=== PATIENT | female | born 1945 | race Caucasian/White ===

== ENCOUNTER 2017-08-17 20:03 | Emergency (ER) | payer OTHER ==
[~2017-08-17] VITALS: Ht 154.9 cm; Wt 66.9 kg
[2017-08-17 20:07] VITALS: BP 170/84; PULSE 96; RESP 16; TEMP 98.5; O2SAT 97
--- NOTE | 2017-08-17 20:50 | PD ---
HPI Chief Complaint: Headache Time Seen by Provider: 20:20 Travel History International Travel<30 days: No Contact w/Intl Traveler<30days: No Traveled to known affect area: No History of Present Illness HPI The patient was seen and examined in the presence of the nurse. This patient complains of a tender lump on the left side of her head. She has had some intermittent low-grade headaches lately. Nothing severe or sustained. No thunderclap onset. No head injury or fever. She went to a walk-in center and they were concerned about temporal arteritis and sent here for sed rate. Symptom severity is mild. No alleviating factors. No exacerbating factors. Duration is 3 days PFSH Past Medical History ?: Not Social History Alcohol Use: No Tobacco Use: No Substance Use: No Allergies-Medications (Allergen,Severity, Reaction): Coded Allergies: iodine (Verified Allergy, Severe, Cramping, 08/17/17) Reported Meds & Prescriptions Reported Meds & Active Scripts Active No Active Prescriptions or Reported Medications Review of Systems General / Constitutional: No: Fever Eyes: No: Visual changes HENT: Positive: Headaches Cardiovascular: No: Chest Pain or Discomfort Respiratory: No: Shortness of Breath Gastrointestinal: No: Abdominal Pain Genitourinary: No: Dysuria Musculoskeletal: No: Pain Skin: No Rash Neurologic: Positive: Headache, No: Weakness Psychiatric: No: Depression Endocrine: No: Polydipsia Hematologic/Lymphatic: No: Easy Bruising Physical Exam Narrative GENERAL: Well-nourished, well-developed patient in no apparent distress. SKIN: Focused skin assessment reveals no rash and nodules. Skin is Warm and dry. HEAD: Atraumatic. Normocephalic. Patient has a tiny little mildly tender area on the left mandaeism. It is not a tender vascular structure. It is barely palpable. EYES: Pupils equal and round. No scleral icterus. No injection or drainage. ENT: No nasal bleeding or discharge. Mucous membranes pink and moist. NECK: Trachea midline. No JVD. CARDIOVASCULAR: Regular rate and rhythm. No murmur appreciated. RESPIRATORY: No accessory muscle use. Clear to auscultation. Breath sounds equal bilaterally. GASTROINTESTINAL: Abdomen soft, non-tender, nondistended. Hepatic and splenic margins not palpable. MUSCULOSKELETAL: No obvious deformities. No clubbing. No cyanosis. No edema. NEUROLOGICAL: Awake and alert. No obvious cranial nerve deficits. Motor grossly within normal limits. Normal speech. PSYCHIATRIC: Appropriate mood and affect; insight and judgment normal. Data Data Last Documented VS Vital Signs Date Time Temp Pulse Resp B/P (MAP) Pulse Ox O2 Delivery O2 Flow Rate FiO2 08/17/17 20:20 Room Air 08/17/17 20:07 98.5 96 16 170/84 (112) 97 Orders Orders Westergren Sedimentation Rate (08/17/17 20:29) Labs Laboratory Tests Test 08/17/17 21:11 Erythrocyte Sedimentation Rate 9 mm/hr MDM Medical Decision Making Medical Screen Exam Complete: Yes Emergency Medical Condition: Yes Medical Record Reviewed: Yes Differential Diagnosis Tender nodule, neuropathic pain, shingles, temporal arteritis Narrative Course I have reviewed the patient's electronic medical record. My clinical suspicion of temporal arteritis is very low. However, in the sake of thoroughness, I have ordered a sedimentation rate. Patient is no neurologic deficit or fever Her headache is minor and I do not feel needs emergent imaging Sedimentation rate is normal at 9 On recheck she feels fine. Stable for outpatient follow-up Diagnosis Primary Impression: Subcutaneous nodule Additional Impression: Headache Qualified Codes: R51 - Headache Additional Instructions: The patient was advised to follow up with their physician and return if they worsen. Med/Other Pt SpecificInfo: Other Scripts No Active Prescriptions or Reported Meds Disposition: 01 DISCHARGE HOME Condition: Stable Rickey Andrews MD August 17, 2017 20:50
[2017-08-17 22:28] VITALS: BP 152/74; TEMP 98.3
== END 2017-08-17 22:42 | disposition home or self-care (01) ==
LOC: PHED 20:03
DX: R51 Headache (principal)
CPT/HCPCS: 85652; 99283